=== PATIENT | male | born 1970 | race Caucasian/White ===

== ENCOUNTER 2020-02-06 09:01 | Emergency (ER) | payer BC, OTHER ==
[~2020-02-06] VITALS: Ht 177.8 cm; Wt 93.1 kg
--- NOTE | 2020-02-06 10:58 | ED General ---
General Chief Complaint: General Problems/Pain Stated Complaint: SWOLLEN LIPS/PAIN Nursing Triage Note: AMB TO ED REPORTS ON MONDAY ONSET OF BURNING OF LIPS WITH SWELLNG AND BLISTERS. WAS SEEN AT URGENT CARE ON MON AND STARTED ON VALTREX NOT ANY BETTER. Nursing Sepsis Screen: No Definite Risk Source of Information: Patient Exam Limitations: No Limitations History of Present Illness Date Seen by Provider: Feb 06, 2020 Time Seen by Provider: 10:43 Initial Comments Here with report of lesions to the lip in time. Started on Valtrex two days ago and it's not better. He was wondering if maybe it was an allergic reaction or something. Has not advanced but has not yet better. Is taking ibuprofen for the pain that is working a little. He has to go back to the pharmacy today to get the full prescription filled as they only had a partial amount when he picked up on Monday. Did have something similar last month briefly that felt better and now has worsened again. Timing/Duration: 3-4 Days Severity: Moderate Associated Systoms: Other (pain to lips and tongue. No Difficulty with swallowing or breathing.) Allergies and Home Medications Patient Home Medication List Home Medication List Reviewed: Yes Review of Systems Review of Systems Constitutional: see HPI; No chills, No fever EENTM: mouth pain; No nose congestion, No throat pain, No throat swelling Respiratory: No cough, No short of breath Cardiovascular: no symptoms reported Skin: see HPI, lesions (lips and tongue ulcerative type lesions) Past Lfkiomy-Akyihw-Nwnkzs Hx Past Med/Social Hx: Reviewed Nursing Past Med/Soc Hx Patient Social History Alcohol Use: Denies Use Recreational Drug Use: No Smoking Status: Never a Smoker Recent Foreign Travel: No Contact w/Someone Who Travel: No Recent Infectious Disease Expo: No Past Medical History Surgeries: Yes Eye Surgery Respiratory: No Cardiac: Yes (SUPPOSE TO BE ON MEDS TOOK SELF OF B/P) Hypertension Neurological: No Genitourinary: No Gastrointestinal: No Integumentary: No Family Medical History Reviewed Nursing Family Hx Physical Exam Vital Signs Vital Signs - First Documented 02/06/20 09:41 Temp 36.9 Pulse 79 Resp 18 B/P (MAP) 173/113 (133) O2 Delivery Room Air Capillary Refill : Less Than 3 Seconds Height, Weight, BMI Height: '" Weight: lbs. oz. kg; 29.00 BMI Method: General Appearance: No Apparent Distress, WD/WN HEENT: No Pharyngeal Erythema; Other (ulcerative lesions to the lips and tongue. No intraoral swelling or significant pharyngeal erythema.) Neck: Non Tender, Supple Respiratory: Lungs Clear, Normal Breath Sounds Cardiovascular: Regular Rate, Rhythm, No Murmur Neurologic/Psychiatric: Alert, Oriented x3 Skin: Normal Color, Warm/Dry, Other (no other lesions on the face except for lips and tongue) Progress/Results/Core Measures Suspected Sepsis Recent Fever Within 48 Hours: No Infection Criteria Present: None New/Unexplained Altered Menta: No Sepsis Screen: No Definite Risk SIRS Temperature: Pulse: 79 Respiratory Rate: 18 Blood Pressure 173 /113 Mean: 133 Results/Orders Vital Signs/I&O 02/06/20 09:41 Temp 36.9 Pulse 79 Resp 18 B/P (MAP) 173/113 (133) O2 Delivery Room Air Capillary Refill : Less Than 3 Seconds Blood Pressure Mean: 133 Progress Note : Progress Note Seen and evaluated. Discharge patient with return precautions. Patient verbalize understanding instructions and agreement with plan. He was instructed to stop the peroxide mouthwash and harsh mouthwash and continue with salt water as well as may use Benadryl elixir topically every 4-6 hours as needed for pain and swelling. Departure Impression Primary Impression: Herpes stomatitis Disposition: 01 HOME, SELF-CARE Condition: Stable Departure-Patient Inst. Decision time for Depature: 10:58 Patient Instructions: Cold Sores (Oral Herpes) (DC) Add. Discharge Instructions: All discharge instructions reviewed with patient and/or family. Voiced understanding. You may use Benadryl/diphenhydramine elixir [id number] 1 teaspoon every 4- 6 hours as needed for pain or swelling. You should swish this around her mouth and coag her lips and hold for a few minutes of possible and then swallow. You may take ibuprofen 600 mg every 8 hours as needed for pain. You may take Tylenol 1000 mg every 8 hours as needed for pain. You should follow-up for your blood pressure which was high today. That may be related to anxiety of the visit but it may also be that you have high blood pressure. This needs to be followed and treated if needed. Please seek local primary care physician for follow-up. Return for worse pain, swelling, difficulty with breathing or swallowing or other concerns as needed. Continue medications as previously prescribed and you may use the continuation prescription at the end of this one if symptoms are not resolved. Scripts Valacyclovir HCl (Valtrex) 500 Mg Tablet 500 MG PO BID for 3 Days, #6 TAB 1 Refill Prov: BE HARPER MD 02/06/20 BE HARPER MD Feb 06, 2020 10:58
[2020-02-06] MEDS ORDERED: VALA500T4 PO (11:02)
[2020-02-06 11:04] VITALS: BP 157/116
--- NOTE | 2020-02-06 11:04 | NUR ---
DISCHARGE B/P 157/114 INSTRUCTED TO FOLLOW UP WITH FAMILY DR FOR B/P ISSUES.
== END 2020-02-06 11:04 | disposition home or self-care (01) ==
LOC: EDUNIT# 09:01 → ER 09:07
DX: B00.2 Herpesviral gingivostomatitis and pharyngotonsillitis (principal)
CPT/HCPCS: 99281

== ENCOUNTER 2020-11-30 10:29 | Emergency (ER) | payer BC ==
[~2020-11-30] VITALS: Ht 177.8 cm; Wt 99.7 kg
[~2020-11-30 10:29] MED LIST: VALA500T4 PO
[2020-11-30] MEDS ORDERED: NS IV 1000 ML 1,000 ML IV ONE (11:00)
[2020-11-30 11:02] LABS: BASOPHILS % (AUTO) 0 % (0-10); EOSINOPHILS # (AUTO) 0.1 10^3/uL (0.0-0.3); EOSINOPHILS % (AUTO) 2 % (0-10); HEMATOCRIT 44 % (40-54); HEMOGLOBIN 15.2 g/dL (13.3-17.7); LYMPHOCYTES # (AUTO) 2.4 10^3/uL (1.0-4.0); LYMPHOCYTES % (AUTO) 34 % (12-44); MEAN CORPUSCULAR HEMOGLOBIN 30 pg (25-34); MEAN CORPUSCULAR HGB CONC 35 g/dL (32-36); MEAN CORPUSCULAR VOLUME 87 fL (80-99); MEAN PLATELET VOLUME 10.1 fL (9.0-12.2); MONOCYTES # (AUTO) 0.5 10^3/uL (0.0-1.0); MONOCYTES % (AUTO) 7 % (0-12); NEUTROPHILS % (AUTO) 57 % (42-75); PLATELET COUNT 300 10^3/uL (130-400)
[2020-11-30 11:05] LABS: ALBUMIN 4.7 GM/DL (3.2-4.5)
[2020-11-30 11:06] LABS: CHLORIDE 105 MMOL/L (98-107); POTASSIUM 4.3 MMOL/L (3.6-5.0); SODIUM 140 MMOL/L (135-145)
[2020-11-30 11:07] LABS: CALCIUM 9.2 MG/DL (8.5-10.1)
[2020-11-30 11:08] LABS: GLUCOSE 115 MG/DL (70-105); TOTAL PROTEIN 7.8 GM/DL (6.4-8.2)
[2020-11-30 11:09] LABS: CARBON DIOXIDE 22 MMOL/L (21-32)
[2020-11-30 11:10] LABS: BILIRUBIN,TOTAL 0.6 MG/DL (0.1-1.0)
[2020-11-30 11:11] LABS: ALKALINE PHOSPHATASE 51 U/L (40-136)
[2020-11-30 11:12] LABS: CREATININE SERUM 1.02 MG/DL (0.60-1.30); GFR ESTIMATED 77
[2020-11-30 11:12] LABS: BILIRUBIN,URINE NEGATIVE (NEGATIVE); CLARITY,URINE CLEAR; COLOR,URINE YELLOW; GLUCOSE, URINE (UA) NEGATIVE (NEGATIVE); KETONES,URINE NEGATIVE (NEGATIVE); LEUKOCYTE ESTERASE ,URINE NEGATIVE (NEGATIVE); NITRITE,URINE NEGATIVE (NEGATIVE); PH,URINE 5.5 (5-9); PROTEIN,URINE NEGATIVE (NEGATIVE)
[2020-11-30 11:13] LABS: BUN/CREATININE RATIO 18
[2020-11-30 11:14] LABS: ALANINE AMINOTRANSFERASE 33 U/L (0-55)
--- NOTE | 2020-11-30 11:19 | ED Neurological Problem ---
General Chief Complaint: Neurological Problems Stated Complaint: R SIDE ARM/EYE PAIN Nursing Triage Note: Pt ambulatory to rm 6. Pt reports sudden onset of R sided head, facial and neck pain. Pt reports numbness into R arm. Pt reports leaving work and going home to take tylenol and one baby aspirin. Pt reports symptoms have not resolved. Source: patient Exam Limitations: no limitations History of Present Illness Date Seen by Provider: Nov 30, 2020 Time Seen by Provider: 10:50 Initial Comments Here with sudden onset of right sided head and facial numbness and pain and pain down his right arm and right side. Took a baby aspirin and a Tylenol at home. Not resolved. Noted to be hypertensive on arrival. Had Covid infection in June but has not had vaccination yet. No Covid symptoms. Denies breathing problems, nausea, vomiting or weakness. Does admit to cutting down a tree last and now may have some pain related to that. Wondered about a pinched nerve. Does complain of neck pain that is mostly right-sided. Timing/Duration: 1-3 hours Severity: mild, moderate Associated Symptoms: No confusion, No fever/chills; muscle spasms (Right-sided neck); No nausea/vomiting, No slurred speech, No weakness Allergies and Home Medications Allergies Coded Allergies: Sulfa (Sulfonamide Antibiotics) (Verified Allergy, Unknown, 11/30/20) Home Medications Valacyclovir HCl 500 Mg Tablet, 500 MG PO BID Prescribed by: BE HARPER on 02/06/20 1102 Patient Home Medication List Home Medication List Reviewed: Yes Review of Systems Review of Systems Constitutional: see HPI; No chills, No fever Eyes: No Symptoms Reported Ears, Nose, Mouth, Throat: no symptoms reported Respiratory: No cough, No short of breath Cardiovascular: No chest pain, No palpitations Gastrointestinal: No abdominal pain, No nausea, No vomiting Genitourinary: no symptoms reported Musculoskeletal: muscle pain, neck pain Skin: no symptoms reported Psychiatric/Neurological: See HPI, Headache, Numbness; Denies Weakness Endocrine: No Symptoms Reported All Other Systems Reviewed Negative Unless Noted: Yes Past Dzatvmi-Sbhiwu-Sxwssz Hx Patient Social History Tobacco Use?: No Substance use?: No Alcohol Use?: Yes Alcohol Frequency: Once in a while Pt feels they are or have been: No Past Medical History Surgeries: Yes Eye Surgery Respiratory: No Cardiac: Yes (SUPPOSE TO BE ON MEDS TOOK SELF OF B/P) Hypertension Neurological: No Genitourinary: No Gastrointestinal: No Integumentary: No Family Medical History Reviewed Nursing Family Hx Physical Exam Vital Signs Vital Signs - First Documented 11/30/20 10:30 Pulse 78 Resp 14 B/P (MAP) 161/120 (134) Pulse Ox 99 O2 Delivery Room Air Capillary Refill : Less Than 3 Seconds Height, Weight, BMI Height: '" Weight: lbs. oz. kg; 31.00 BMI Method: General Appearance: WD/WN, no apparent distress HEENT: PERRL/EOMI, pharynx normal Neck: full range of motion, supple, tender lateral (Right-sided) Respiratory: lungs clear, normal breath sounds Cardiovascular: regular rate, rhythm, no murmur Gastrointestinal: non tender, soft Back: normal inspection, no CVA tenderness, no vertebral tenderness Extremities: non-tender, normal inspection Neurologic/Psychiatric: alert, oriented x 3 Crainal Nerves: normal hearing, normal speech, PERRL Coordination/Gait: normal finger to nose Motor/Sensory: no motor deficit, no sensory deficit, no pronator drift Skin: normal color, warm/dry Progress/Results/Core Measures Results/Orders Lab Results Laboratory Tests Test 11/30/20 10:39 11/30/20 10:55 11/30/20 11:05 Range/Units White Blood Count 7.0 4.3-11.0 10^3/uL Red Blood Count 5.03 4.30-5.52 10^6/uL Hemoglobin 15.2 13.3-17.7 g/dL Hematocrit 44 40-54 % Mean Corpuscular Volume 87 80-99 fL Mean Corpuscular Hemoglobin 30 25-34 pg Mean Corpuscular Hemoglobin Concent 35 32-36 g/dL Red Cell Distribution Width 12.5 10.0-14.5 % Platelet Count 300 130-400 10^3/uL Mean Platelet Volume 10.1 9.0-12.2 fL Immature Granulocyte % (Auto) 0 % Neutrophils (%) (Auto) 57 42-75 % Lymphocytes (%) (Auto) 34 12-44 % Monocytes (%) (Auto) 7 0-12 % Eosinophils (%) (Auto) 2 0-10 % Basophils (%) (Auto) 0 0-10 % Neutrophils # (Auto) 4.0 1.8-7.8 10^3/uL Lymphocytes # (Auto) 2.4 1.0-4.0 10^3/uL Monocytes # (Auto) 0.5 0.0-1.0 10^3/uL Eosinophils # (Auto) 0.1 0.0-0.3 10^3/uL Basophils # (Auto) 0.0 0.0-0.1 10^3/uL Immature Granulocyte # (Auto) 0.0 0.0-0.1 10^3/uL Prothrombin Time 12.2 12.2-14.7 SEC INR Comment 0.9 0.8-1.4 Activated Partial Thromboplast Time 30 24-35 SEC D-Dimer < 0.27 0.00-0.49 UG/ML Sodium Level 140 135-145 MMOL/L Potassium Level 4.3 3.6-5.0 MMOL/L Chloride Level 105 98-107 MMOL/L Carbon Dioxide Level 22 21-32 MMOL/L Anion Gap 13 5-14 MMOL/L Blood Urea Nitrogen 18 7-18 MG/DL Creatinine 1.02 0.60-1.30 MG/DL Estimat Glomerular Filtration Rate 77 BUN/Creatinine Ratio 18 Glucose Level 115 H 70-105 MG/DL Calcium Level 9.2 8.5-10.1 MG/DL Corrected Calcium 8.5-10.1 MG/DL Total Bilirubin 0.6 0.1-1.0 MG/DL Aspartate Amino Transf (AST/SGOT) 26 5-34 U/L Alanine Aminotransferase (ALT/SGPT) 33 0-55 U/L Alkaline Phosphatase 51 40-136 U/L Troponin I < 0.028 <0.028 NG/ML Total Protein 7.8 6.4-8.2 GM/DL Albumin 4.7 H 3.2-4.5 GM/DL Urine Color YELLOW Urine Clarity CLEAR Urine pH 5.5 5-9 Urine Specific [place] 1.015 L 1.016-1.022 Urine Protein NEGATIVE NEGATIVE Urine Glucose (UA) NEGATIVE NEGATIVE Urine Ketones NEGATIVE NEGATIVE Urine Nitrite NEGATIVE NEGATIVE Urine Bilirubin NEGATIVE NEGATIVE Urine Urobilinogen 0.2 < = 1.0 MG/DL Urine Leukocyte Esterase NEGATIVE NEGATIVE Urine RBC (Auto) TRACE-I NEGATIVE Urine RBC NONE /HPF Urine WBC NONE /HPF Urine Squamous Epithelial Cells 0-2 /HPF Urine Crystals NONE /LPF Urine Bacteria NEGATIVE /HPF Urine Casts NONE /LPF Urine Mucus NEGATIVE /LPF Urine Culture Indicated NO Glucometer 130 H 70-110 MG/DL My Orders Orders - BE HARPER MD Cbc With Automated Diff (11/30/20 10:56) Protime With Inr (11/30/20 10:56) Partial Thromboplastin Time (11/30/20 10:56) Comprehensive Metabolic Panel (11/30/20 10:56) Fibrin Degradation Products (11/30/20 10:56) Troponin I (11/30/20 10:56) Ua Culture If Indicated (11/30/20 10:56) Chest 1 View, Ap/Pa Only (11/30/20 10:56) Ekg Tracing (11/30/20 10:56) Nothing By Mouth (11/30/20 Lunch) Accucheck Stat ONCE (11/30/20 10:56) Ed Iv/Invasive Line Start (11/30/20 10:56) Ed Iv/Invasive Line Start (11/30/20 10:56) Vital Signs Stroke Patient Q15M (11/30/20 10:56) O2 (11/30/20 10:56) Intake & Output 06,14,22 (11/30/20 10:56) Monitor-Rhythm Ecg Trace Only (11/30/20 10:56) Dysphagia Screening Tool (11/30/20 10:56) Post Thrombolytic Adminstratio (11/30/20 10:56) Lipid Panel (12/01/20 06:00) Ct Angio Head/Neck (11/30/20 10:56) Ns Iv 1000 Ml (Sodium Chloride 0.9%) (11/30/20 11:00) Ct Cervical Spine Wo (11/30/20 10:56) Iohexol Injection (Omnipaque 350 Mg/Ml 1 (11/30/20 11:45) Received Contrast (Hold Metformin- Contr (11/30/20 11:45) Sodium Chloride Flush (Catheter Flush Sy (11/30/20 11:45) Ns (Ivpb) (Sodium Chloride 0.9% Ivpb Bag (11/30/20 11:45) Ketorolac Injection (Toradol Injection) (11/30/20 13:30) Orphenadrine Inj (Ed Only) (Norflex Inje (11/30/20 13:30) Amlodipine Tablet (Norvasc Tablet) (11/30/20 14:15) Medications Given in ED Current Medications Medications Dose Ordered Sig/Sharon Route Start Time Stop Time Status Last Admin Dose Admin Amlodipine Besylate 5 mg ONCE ONCE PO 11/30/20 14:15 11/30/20 14:16 DC 11/30/20 14:14 5 MG Iohexol 75 ml ONCE ONCE IV 11/30/20 11:45 11/30/20 11:46 DC 11/30/20 12:03 75 ML Sodium Chloride 10 ml NEEDED PRN IV 11/30/20 11:45 11/30/20 12:03 10 ML Sodium Chloride 100 ml ONCE ONCE IV 11/30/20 11:45 11/30/20 11:46 DC 11/30/20 12:03 80 ML Sodium Chloride 1,000 ml @ 0 mls/hr Q0M ONCE IV 11/30/20 11:00 11/30/20 11:01 DC 11/30/20 11:10 1,000 MLS/HR Vital Signs/I&O 11/30/20 10:30 Pulse 78 Resp 14 B/P (MAP) 161/120 (134) Pulse Ox 99 O2 Delivery Room Air Blood Pressure Mean: 134 FSBG Bedside Testing Finger Stick Blood Glucose: 130 Progress Progress Note : Progress Note Seen and evaluated. Complicated initial presentation as he is hypertensive with right-sided findings. We will rule out stroke given his initial presentation. Stroke scale is 0 currently. We will get CT head and neck without contrast as well as angiogram of head neck to rule out intracranial pathology and vascular abnormality. We will hold on treatment for blood pressure pending further evaluation. 1400: CT head and neck without contrast and angiogram are negative. Blood pressure remains elevated. Amlodipine 5 mg p.o. We will go ahead and give Toradol 30 mg IV as well as Norflex 60 mg IV and see if that helps. 1435: Overall doing better. Blood pressure remains elevated at 150s over 100s. We will continue amlodipine outpatient. This event may stem from right-sided neck stiffness and pain after the work from last week given that all the other evaluation is negative. We will continue with muscle relaxer outpatient and have him follow-up with Dr. Campbell for further evaluation and care. Patient is fully in agreement with this. We will continue amlodipine for the next 2 weeks and he will continue his other home medication which he thinks is metoprolol although that may have been changed. He will discuss that with Dr. Campbell as well. Discharged home with return precautions. Patient verbalized understanding of instructions and agreement with plan. Initial ECG Impression Date: Nov 30, 2020 Initial ECG Impression Time: 10:40 Initial ECG Rate: 76 Initial ECG Rhythm: Normal Sinus Comment Sinus rhythm with normal axis. No evidence of ST elevation [place]. No previous available for comparison. Interpreted by me. Diagnostic Imaging Diagonstic Imaging: Xray Plain Films/CT/US/NM/MRI: chest Comments [facility] [place] NAME: BALDODAYANA [employer] [facility] REC#: [id number] PT STATUS: REG ER : 1970 PHYSICIAN: BE HARPER MD ADMIT DATE: 11/30/20/ER Signed Date of Exam:11/30/20 CHEST 1 VIEW, AP/PA ONLY CHEST 1 VIEW, AP/PA ONLY Indication: Right-sided chest pain Comparison: None available. Findings: No focal airspace disease in the visualized lungs. Please note that the posterior lower lobes are poorly evaluated by portable radiography. No pleural effusion or pneumothorax. Normal cardiomediastinal silhouette. Impression: 1. No acute cardiopulmonary process by portable radiography. Dictated by: Dictated on workstation # [id number] Dict: 11/30/20 1217 Trans: 11/30/20 1217 [facility] [id number] Interpreted by: HERMILO BARBER MD Electronically signed by: HERMILO BARBER MD 11/30/20 1217 Diagonstic Imaging: CT Plain Films/CT/US/NM/MRI: other Comments [facility] [place] NAME: BALDODAYANA [employer] [facility] REC#: [id number] PT STATUS: REG ER : 1970 PHYSICIAN: BE HARPER MD ADMIT DATE: 11/30/20/ER Signed Date of Exam:11/30/20 CT ANGIO HEAD/NECK PROCEDURE: CT angiography of the head and CT angiography of the neck with and without contrast. TECHNIQUE: Contiguous noncontrast images were obtained from the skull base through the vertex. After intravenous contrast administration, helical CT angiography of the neck was performed. Source data was reformatted into 3D MIP projections. Delayed post contrast acquisition was also obtained. Auto Exposure Controls were utilized during the CT exam to meet ALARA standards for radiation dose reduction. INDICATION: Right-sided head, face, and arm numbness. COMPARISON: CT cervical spine without contrast performed concurrently. FINDINGS: NONCONTRAST HEAD: No intracranial hyperdense hemorrhage or space-occupying mass. No hydrocephalus or midline shift. Wilson-white matter differentiation is preserved. No hyperdense vessel sign is appreciated. Pituitary and pineal regions are unremarkable. No cerebellar tonsillar ectopia. No acute osseous lesion in the calvarium. Paranasal sinuses and mastoid air cells are clear. CTA NECK: Visualized portions of the great vessels are normal. The common carotid arteries are patent bilaterally without dissection or stenosis. No stenosis of the internal carotid arteries per NASCET criteria. The cervical divisions of the internal carotid arteries are widely patent without stenosis or dissection. The vertebral arteries are codominant and patent. No cervical lymphadenopathy. Airway is widely patent. A 1.1 cm right thyroid nodule has no suspicious features and does not require dedicated followup ultrasound based on appearance. Please see CT cervical spine for details of the osseous structures of the cervical spine. CTA HEAD: The bilateral distal internal carotid arteries are patent and without terminal aneurysm. The M1 and M2 divisions of the middle cerebral arteries are widely patent and without aneurysm. The anterior communicating artery has no aneurysm and is patent. Bilateral anterior cerebral arteries are normal. The basilar artery is widely patent and without terminal aneurysm. Posterior cerebral arteries are normal. The left posterior cerebral artery has a origin. No posterior communicating artery aneurysm. On delayed phase imaging, there is no pathologic enhancement appreciated. The dural venous sinuses are widely patent. IMPRESSION: 1. No intracranial large vessel occlusion or saccular aneurysm. 2. No arterial stenosis or occlusion in the neck. 3. Dural venous sinuses are patent. 4. No features of territorial infarct or intracranial hemorrhage. Dictated by: Dictated on workstation # [id number] Dict: 11/30/20 1226 Trans: 11/30/20 1319 [id number] Interpreted by: HERMILO BARBER MD Electronically signed by: HERMILO BARBER MD 11/30/20 1319 Diagonstic Imaging: CT Plain Films/CT/US/NM/MRI: c-spine Comments [facility], [place] NAME: DAYANA BLAND REC#: [id number] PT STATUS: REG ER : 1970 PHYSICIAN: BE HARPER MD ADMIT DATE: 11/30/20/ER Signed Date of Exam:11/30/20 CT CERVICAL SPINE WO PROCEDURE: CT cervical spine without contrast. TECHNIQUE: Multiple contiguous axial images were obtained through the cervical spine without the use of intravenous contrast. Sagittal and coronal reformations were then performed. Auto Exposure Controls were utilized during the CT exam to meet ALARA standards for radiation dose reduction. INDICATION: Neck pain, injury last . COMPARISON: CTA head and neck performed concurrently. FINDINGS: Mild straightening of the cervical spine. No fracture or traumatic malalignment. No high-grade spinal stenosis. 1 cm right thyroid nodule has no features that would make follow-up imaging required based on CT. Lung apices are clear. IMPRESSION: No acute fracture or traumatic malalignment in the cervical spine. Dictated by: Dictated on workstation # [id number] Dict: 11/30/20 1235 Trans: 11/30/20 1319 [facility] [id number] Interpreted by: HERMILO BARBER MD Electronically signed by: HERMILO BARBER MD 11/30/20 1319 Departure Impression Primary Impression: Hypertension Qualified Codes: I10 - Essential (primary) hypertension Additional Impression: Neck pain on right side Disposition: 01 HOME, SELF-CARE Condition: Improved Departure-Patient Inst. Decision time for Depature: 14:50 Referrals: NO,LOCAL PHYSICIAN (PCP) Primary Care Physician Patient Instructions: High Blood Pressure ED, Headache, Adult (DC), Neck Pain ED Add. Discharge Instructions: All discharge instructions reviewed with patient and/or family. Voiced understanding. You may take Tylenol and/or ibuprofen as needed for pain. Take other medications as prescribed. Follow-up with your doctor regarding your blood pressure and for recheck and further evaluation. If your neck pain does not resolve, you may need further imaging such as MRI. Discussed this with your doctor. Return for worse pain, fever, vomiting, weakness, breathing problems or other concerns as needed. You should monitor your blood pressure daily and take that log to your doctor's office to assist with evaluation of your current medications. Scripts Cyclobenzaprine HCl (Cyclobenzaprine HCl) 10 Mg Tablet 10 MG PO Q8H PRN for SPASMS, #15 TAB 0 Refills Prov: BE HARPER MD 11/30/20 Amlodipine Besylate (Amlodipine Besylate) 5 Mg Tablet 5 MG PO DAILY for 14 Days, #14 TAB Prov: BE HARPER MD 11/30/20 Copy Copies To 1: ROBERTA CAMPBELL MD, TIMOTHY D MD Nov 30, 2020 11:19
[2020-11-30 11:26] LABS: BACTERIA,URINE NEGATIVE /HPF; SQUAMOUS EPITHELIAL CELL,UR 0-2 /HPF
[2020-11-30 11:43] LABS: INR 0.9 (0.8-1.4); PARTIAL THROMBOPLASTIN TIME 30 SEC (24-35); PROTHROMBIN TIME PATIENT 12.2 SEC (12.2-14.7)
[2020-11-30] MEDS ORDERED: CATHETER FLUSH 10 ML SYR IV PRN (11:45)
[2020-11-30] MEDS ORDERED: HOLD METFORMIN - RECEIVED CONTRAST 20 ML VIAL IV SCH (11:45)
[2020-11-30] MEDS ORDERED: IOHEXOL 350 MG/ML 100 ML (OMNIPAQUE 350) VIAL IV ONE (11:45)
[2020-11-30] MEDS ORDERED: NS 100 ML (IVPB) BAG IV ONE (11:45)
[2020-11-30 12:01] LABS: FIBRIN DEGRADATION PRODUCTS < 0.27 UG/ML (0.00-0.49)
--- NOTE | 2020-11-30 12:18 | Diagnostic Imaging Report ---
CHEST 1 VIEW, AP/PA ONLY Indication: Right-sided chest pain Comparison: None available. Findings: No focal airspace disease in the visualized lungs. Please note that the posterior lower lobes are poorly evaluated by portable radiography. No pleural effusion or pneumothorax. Normal cardiomediastinal silhouette. Impression: 1. No acute cardiopulmonary process by portable radiography. Dictated by: Dictated on workstation # [id number]
--- NOTE | 2020-11-30 12:43 | Diagnostic Imaging Report ---
PROCEDURE: CT angiography of the head and CT angiography of the neck with and without contrast. TECHNIQUE: Contiguous noncontrast images were obtained from the skull base through the vertex. After intravenous contrast administration, helical CT angiography of the neck was performed. Source data was reformatted into 3D MIP projections. Delayed post contrast acquisition was also obtained. Auto Exposure Controls were utilized during the CT exam to meet ALARA standards for radiation dose reduction. INDICATION: Right-sided head, face, and arm numbness. COMPARISON: CT cervical spine without contrast performed concurrently. FINDINGS: NONCONTRAST HEAD: No intracranial hyperdense hemorrhage or space-occupying mass. No hydrocephalus or midline shift. Wilson-white matter differentiation is preserved. No hyperdense vessel sign is appreciated. Pituitary and pineal regions are unremarkable. No cerebellar tonsillar ectopia. No acute osseous lesion in the calvarium. Paranasal sinuses and mastoid air cells are clear. CTA NECK: Visualized portions of the great vessels are normal. The common carotid arteries are patent bilaterally without dissection or stenosis. No stenosis of the internal carotid arteries per NASCET criteria. The cervical divisions of the internal carotid arteries are widely patent without stenosis or dissection. The vertebral arteries are codominant and patent. No cervical lymphadenopathy. Airway is widely patent. A 1.1 cm right thyroid nodule has no suspicious features and does not require dedicated followup ultrasound based on appearance. Please see CT cervical spine for details of the osseous structures of the cervical spine. CTA HEAD: The bilateral distal internal carotid arteries are patent and without terminal aneurysm. The M1 and M2 divisions of the middle cerebral arteries are widely patent and without aneurysm. The anterior communicating artery has no aneurysm and is patent. Bilateral anterior cerebral arteries are normal. The basilar artery is widely patent and without terminal aneurysm. Posterior cerebral arteries are normal. The left posterior cerebral artery has a origin. No posterior communicating artery aneurysm. On delayed phase imaging, there is no pathologic enhancement appreciated. The dural venous sinuses are widely patent. IMPRESSION: 1. No intracranial large vessel occlusion or saccular aneurysm. 2. No arterial stenosis or occlusion in the neck. 3. Dural venous sinuses are patent. 4. No features of territorial infarct or intracranial hemorrhage. Dictated by: Dictated on workstation # [id number]
--- NOTE | 2020-11-30 12:50 | Diagnostic Imaging Report ---
PROCEDURE: CT cervical spine without contrast. TECHNIQUE: Multiple contiguous axial images were obtained through the cervical spine without the use of intravenous contrast. Sagittal and coronal reformations were then performed. Auto Exposure Controls were utilized during the CT exam to meet ALARA standards for radiation dose reduction. INDICATION: Neck pain, injury last . COMPARISON: CTA head and neck performed concurrently. FINDINGS: Mild straightening of the cervical spine. No fracture or traumatic malalignment. No high-grade spinal stenosis. 1 cm right thyroid nodule has no features that would make follow-up imaging required based on CT. Lung apices are clear. IMPRESSION: No acute fracture or traumatic malalignment in the cervical spine. Dictated by: Dictated on workstation # [id number]
[2020-11-30] MEDS ORDERED: ORPHENADRINE 60 MG/2 ML (NORFLEX) AMP (ED ONLY) IV STA (13:30)
[2020-11-30] MEDS ORDERED: KETOROLAC 30 MG/ML VIAL IVP STA (13:30)
[2020-11-30] MEDS ORDERED: amLODIPine 5 MG (NORVASC) TAB PO ONE (14:15)
[2020-11-30] MEDS ORDERED: AMLO-250 PO (14:51)
[2020-11-30] MEDS ORDERED: CYCL10TA9 PO (14:51)
[2020-11-30 14:58] VITALS: BP 162/122
== END 2020-11-30 15:04 | disposition home or self-care (01) ==
LOC: EDUNIT# 10:29 → ER 10:31
DX: I10 Essential (primary) hypertension (principal); M54.2 Cervicalgia
CPT/HCPCS: 36415; 70496; 70498; 71045; 72125; 80053; 81000; 82947; 84484; 85025; 85379; 85610; 85730; 93005; 93041

== ENCOUNTER → 2022-08-17 | Outpatient (CLI) | payer BC ==
[~2022-08-17] MED LIST changes: +AMLO-250 PO; +CYCL10TA25 PO
--- NOTE | 2022-08-17 16:21 | Diagnostic Imaging Report ---
Indication: Back pain. Time of Exam: 10:25 AM 3 views of the lumbar spine were obtained. Curvature and alignment is normal. Vertebral body heights and disc spaces are well-maintained. No fracture or subluxation is identified. Impression: No acute abnormality is detected. Dictated by: Dictated on workstation # [id number]
== END ==
LOC: RAD 10:05
PROVIDERS: ATTEND Family Medicine
DX: M54.50 Low back pain, unspecified (principal)
CPT/HCPCS: 72100